=== PATIENT | female | born 1960 | race African-American/Black ===

== ENCOUNTER 2016-09-05 12:17 | Emergency (ER) | payer OTHER ==
[~2016-09-05] VITALS: Ht 167.6 cm; Wt 63.5 kg
[~2016-09-05 12:17] MED LIST: DOCUSATE SODIU100 MG PO; INDOMETHACIN50 MG PO; MAG-OX 400400 MG PO; MEDROL4 M2 PO; NORVASC 10MG10 MG PO; PANTOPRAZOLE SO40 M1 PO; PREDNICOT10 MG PO; PRILOSEC20 MG PO; TRAMADOL HCL50 M1 PO; TRANDATE-NORMO100 MG PO; TYLENOL #31 TAB PO
[2016-09-05] MEDS ORDERED: AMLODIPINE BESYL5 M1 PO (14:14)
--- NOTE | 2016-09-05 14:31 | ED UPPER/LOWER EXTREMITY COMPL ---
History of Present Illness General Chief Complaint: Lower Extremity Problems Stated Complaint: LFT HIP PAIN Source: patient Exam Limitations: no limitations Vital Signs & Intake/Output Vital Signs & Intake/Output ED Intake and Output 09/06 0000 09/05 1200 Intake Total 0 Output Total Balance 0 Intake, IV 0 Patient 140 lb Weight Weight Reported by Patient Measurement Method Allergies Coded Allergies: lisinopril (Severe, FACIAL SWELLING, TONGUE SWELLING 09/02/15) Reconcile Medications Amlodipine Besylate 5 MG TABLET 1 TAB PO DAILY HEART (Reported) Meloxicam (Mobic) 15 MG TABLET 1 TAB PO DAILY PRN PAIN Pantoprazole Sodium 40 MG TABLET.DR 1 TAB PO DAILY GI (Reported) Tramadol HCl (Ultram) 50 MG TABLET 1 TAB PO BIDP PRN SEVERE PAIN Triage Note: 56 Y/O FEMALE C/O L HIP PAIN RADIATING INTO L KNEE; ONSET YESTERDAY. STATES PAIN STARTED WHEN SHE WAS STANDING YESTERDAY, DENIES INJURY OR TRAUMA. STATES SHE WAS UNABLE TO SLEEP DUE TO PAIN. DECLINES MEDS IN TRIAGE. DECLINES OFFER OF W/C Triage Nurses Notes Reviewed? yes Onset: Gradual Duration: day(s): (2) Timing: remote history Severity: moderate Severity Numbers: 6 Pain/Injury Location: Left: Hip. Method of Injury: fall 2 weeks Modifying Factors: Improves With: immobilization. Worsens With: movement. HPI: Patient is a 56-year-old female presenting to the emergency department with chief complaint of left hip pain that radiates to the left knee that started 2 days ago. Worse with movement. Pain is aching and throbbing. Denies any specific injury but reports that she took a fall 2 weeks ago and injured her right side. She saw her primary care physician for that but then developed this left hip pain 2 days ago. No numbness or tingling. Denies any urinary incontinence or retention denies any nausea or vomiting fevers or chills chest pain or shortness of breath. Has been using ibuprofen at home with little relief.. No head injury or loss of consciousness. (TINO MARQUEZ) Past History Travel History Traveled to [place] past 21 day No Medical History Any Pertinent Medical History? 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 No (TINO MARQUEZ) Review of Systems Review of Systems Constitutional: Reports: no symptoms. Comments Review of systems: See HPI, All other systems negative. Constitutional, no chills fever or weight loss HEENT: No visual changes no sore throat no congestion Cardiovascular: No chest pain ,palpitation , orthopnea or ankle swelling Skin, no jaundice no rashes Respiratory: No dyspnea cough sputum or hemoptysis GI: No nausea no vomiting : No dysuria No hematuria Muscle skeletal: no back pain, no neck pain, Neurologic: No numbness Immunology: No splenectomy or history of AIDS (TINO MARQUEZ) Physical Exam Physical Exam General Appearance: well developed/nourished, no apparent distress, alert, awake , comfortable Comments: Well-developed well-nourished no apparent distress. HEENT: Atraumatic, extraocular motion intact Neck: Supple, no lymphadenopathy Back: Nontender Respiratory: No respiratory distress Extremities: No edema, tenderness palpation over the left greater trochanteric and limited range of motion of left hip flexion, extension and abduction. Negative straight leg raise bilaterally. Neuro: Alert and oriented x3, motor and sensory intact bilaterally. Patellar reflexes are 2+ bilaterally. Psych: Mood affect normal, normal memory normal judgment. (LENIN MCINTOSH,TINO) Progress Differential Diagnosis: contusion, dislocation, sprain, tendon injury Plan of Care: Orders Procedure Date/time Status XRY-HIP 2-3 VIEWS, LEFT 09/05 1420 Active Diagnostic Imaging: Viewed by Me: Radiology Read. Discussed w/RAD: Radiology Read. Radiology Impression: PATIENT: CARMINA VALERA PRESENT AGE: 56 PATIENT ACCOUNT NO: [id number] : 58 LOCATION: [facility] ORDERING PHYSICIAN: TINO MCINTOSH SERVICE DATE: 09/05/16 EXAM TYPE: RAD - XRY-HIP 2-3 VIEWS, LEFT EXAMINATION: XR HIP, LEFT CLINICAL INFORMATION: Pain status post fall COMPARISON: CT from 07/05/2014 TECHNIQUE: Frontal view of the pelvis with 2 additional views of the left hip of the left hip. FINDINGS: No fracture or dislocation. The femoral heads are well-seated within their respective acetabula. Mild degenerative changes of both hips with mild joint space narrowing. The pelvic rim is intact. The sacroiliac joints and pubic symphysis are intact. Calcified uterine fibroid in the left hemipelvis noted. The bowel gas pattern is unremarkable. IMPRESSION: No acute fracture or dislocation. Mild degenerative changes in the hips. (TINO MARQUEZ) Departure Departure Time of Disposition: 1502 Disposition: HOME OR SELF CARE Condition: Stable Clinical Impression Primary Impression: Hip pain Qualifiers: Laterality: left Qualified Code: M25.552 - Pain in left hip Referrals: ANDREI RUDOLPH,MARTI Norman (PCP/Family) Additional Instructions: Follow-up with your primary care physician CALL TO MAKE appointment. Take anti- inflammatory as prescribed. For severe pain take Ultram .return for worsening symptoms or concerns. Departure Forms: Customer Survey General Discharge Information Prescriptions: Current Visit Scripts Meloxicam (Mobic) 1 TAB PO DAILY PRN PAIN #15 TAB Tramadol HCl (Ultram) 1 TAB PO BIDP PRN SEVERE PAIN #6 TAB (TINO MARQUEZ) PA/AUTO SELF SERVICE STATION ATTENDANT Co-Sign Statement Statement: ED Attending supervision documentation- [] I saw and evaluated the patient. I have also reviewed all the pertinent lab results and diagnostic results. I agree with the findings and the plan of care as documented in the PA's/AUTO SELF SERVICE STATION ATTENDANT's documentation. [x] I have reviewed the ED Record and agree with the PA's/AUTO SELF SERVICE STATION ATTENDANT's documentation. [] Additions or exceptions (if any) to the PAs/AUTO SELF SERVICE STATION ATTENDANT's note and plan are summarized below: [] (BENITO ESPINOZA DO)
[2016-09-05 15:01] VITALS: BP 120/75
--- NOTE | 2016-09-05 15:01 | RADIOLOGY REPORT ---
EXAMINATION: XR HIP, LEFT CLINICAL INFORMATION: Pain status post fall COMPARISON: CT from 07/05/2014 TECHNIQUE: Frontal view of the pelvis with 2 additional views of the left hip of the left hip. FINDINGS: No fracture or dislocation. The femoral heads are well-seated within their respective acetabula. Mild degenerative changes of both hips with mild joint space narrowing. The pelvic rim is intact. The sacroiliac joints and pubic symphysis are intact. Calcified uterine fibroid in the left hemipelvis noted. The bowel gas pattern is unremarkable. IMPRESSION: No acute fracture or dislocation. Mild degenerative changes in the hips.
[2016-09-05] MEDS ORDERED: MOBIC15 M1 PO (15:06)
[2016-09-05] MEDS ORDERED: ULTRAM50 M1 PO (15:06)
== END 2016-09-05 15:14 ==
LOC: ERH 12:17
DX: M25.552 Pain in left hip (principal)
CPT/HCPCS: 73502-LT

== ENCOUNTER 2017-09-16 20:20 | Emergency (ER) | payer OTHER ==
[~2017-09-16 20:20] MED LIST changes: +AMLODIPINE BESYL5 M1 PO; +MOBIC15 M1 PO; +ULTRAM50 M1 PO
--- NOTE | 2017-09-16 21:27 | ED UPPER/LOWER EXTREMITY COMPL ---
History of Present Illness General Chief Complaint: Lower Extremity Problems Stated Complaint: BILATERL FEET PAIN AND SWELLING, BUNION PAIN Source: patient Exam Limitations: no limitations Vital Signs & Intake/Output Vital Signs & Intake/Output Vital Signs Date Time Temp Pulse Resp B/P B/P Pulse O2 O2 Flow FiO2 Mean Ox Delivery Rate 09/17 2143 98.2 104 16 168/79 96 Room Air 09/16 2045 171/82 09/16 2042 97.4 106 16 94 Room Air Allergies Coded Allergies: lisinopril (Severe, FACIAL SWELLING, TONGUE SWELLING 09/02/15) Reconcile Medications Amlodipine Besylate 5 MG TABLET 1 TAB PO DAILY HEART (Reported) Colchicine (Colcrys) 0.6 MG TABLET 1-2 TAB PO TID GOUT Indomethacin 50 MG CAPSULE 1 CAP PO TID PRN PAIN with food Meloxicam (Mobic) 15 MG TABLET 1 TAB PO DAILY PRN PAIN Oxycodone HCl/Acetaminophen (Percocet 5-325 MG Tablet) 5 MG-325 MG TABLET 1 TAB PO 4XDP PRN PAIN TEN...[id number] Pantoprazole Sodium 40 MG TABLET.DR 1 TAB PO DAILY GI (Reported) Prednisone 20 MG TABLET 2 TAB PO QDAY GOUT Tramadol HCl (Ultram) 50 MG TABLET 1 TAB PO BIDP PRN SEVERE PAIN Triage Note: PT TO ED WITH WORSENING BILATERAL FOOT PAIN X 1 MONTH. PAIN WORSE IN LEFT FOOT WITH MILD SWELLING. TAKING ALEVE AND MOTRIN W/O RELIEF. STATES SHE HAS BEEN TOLD SHE HAS GOUT, ARTHRITIS IN THE PAST, BUT PAIN HAS GOTTEN UNBEARABLE. Triage Nurses Notes Reviewed? yes Onset: Gradual Duration: day(s): Timing: recent history Severity: mild, moderate Pain/Injury Location: Right: Ankle. Method of Injury: unknown Modifying Factors: Improves With: rest. Worsens With: movement. Associated Symptoms: swelling HPI: 57-year-old woman history of gout and osteoarthritis presents with right ankle swelling and pain. She notes that she has had bilateral ankle and foot pain for the past one month, with painful bunions. For the past 1-2 days she's noted worsening pain on the medial aspect of her right ankle with mild swelling without erythema or significant warmth. Past History Travel History Traveled to [place] past 21 day No Medical History Any Pertinent Medical History? 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 No Review of Systems Review of Systems Constitutional: Reports: no symptoms. EENTM: Reports: no symptoms. Respiratory: Reports: no symptoms. Cardiovascular: Reports: no symptoms. Gastrointestinal/Abdominal: Reports: no symptoms. Genitourinary: Reports: no symptoms. Musculoskeletal: Reports: no symptoms. Skin: Reports: no symptoms. Neurological/Psychological: Reports: no symptoms. Hematologic/Endocrine: Reports: no symptoms. Immunological: Reports: no symptoms. All Other Systems: Reviewed and Negative Physical Exam Physical Exam General Appearance: well developed/nourished, mild distress Head: atraumatic Eyes: Bilateral: normal appearance. Ears, Nose, Throat: normal pharynx, normal ENT inspection, hearing grossly normal Neck: normal inspection, supple Cardiovascular/Respiratory: regular rate/rhythm Back: normal inspection Foot Right: swelling, right medial malleolus swelling with mild warmth to palpation. no erythema. no effusion... exquisitely tender with passive ROM Skin: intact, normal color, warm/dry Lymphatic: no anterior cervical chase Progress Differential Diagnosis: gout vs osteoarthritis vs other. Plan of Care: Current Medications Sig/Shay Start time Last Medication Dose Stop Time Status Admin Oxycodone/ 1 TAB ONCE ONE 09/16 2144 UNVr Acetaminophen 09/16 2145 (Percocet) Prednisone 40 MG ONCE ONE 09/16 2144 UNVr 09/16 2145 Colchicine 1,200 MCG ONCE ONE 09/16 2129 UNVr (Colchicine 600MCG 09/16 2130 Tab) Ibuprofen 600 MG ONCE ONE 09/16 2129 UNVr (Motrin) 09/16 2130 Departure Departure Disposition: HOME OR SELF CARE Condition: Stable Clinical Impression Primary Impression: Gout Referrals: Ehsan RUDOLPH,Bakari Norman (PCP/Family) Departure Forms: Customer Survey General Discharge Information Prescriptions: Current Visit Scripts Colchicine (Colcrys) 1-2 TAB PO TID #30 TAB Prednisone 2 TAB PO QDAY #6 TAB Oxycodone HCl/Acetaminophen (Percocet 5-325 MG Tablet) 1 TAB PO 4XDP PRN PAIN #10 TAB TEN...[id number] Indomethacin 1 CAP PO TID PRN PAIN #30 CAP Ref 1 with food
[2017-09-16] MEDS ORDERED: PREDNISONE20 M1 PO (21:33)
[2017-09-16] MEDS ORDERED: INDOMETHACIN50 M1 PO (21:33)
[2017-09-16] MEDS ORDERED: PERCOCET 5-3251 EACH PO (21:33)
[2017-09-16] MEDS ORDERED: COLCRYS0.6 M1 PO (21:33)
[2017-09-16 21:44] VITALS: BP 168/79
== END 2017-09-16 22:13 ==
LOC: ERH 20:20
DX: M10.9 Gout, unspecified (principal)